=== PATIENT | male | born 1960 | race Caucasian/White ===

== ENCOUNTER 2017-07-13 05:36 | Inpatient (IN) | payer BC ==
[2017-07-13] MEDS: CEFAZOLIN 2 GM/50 ML (PMX) 50 ML IVPB (06:41)
[2017-07-13] MEDS ORDERED: MIDAZOLAM 1 MG/ML 2 ML INJ (06:48)
[2017-07-13] MEDS ORDERED: PROPOFOL 20 ML (06:48)
[2017-07-13] MEDS ORDERED: LIDOCAINE 1% (MDV) 20 ML INJ (06:48)
[2017-07-13] MEDS ORDERED: SUCCINYLCHOLINE CHLORIDE 100 MG/5 ML SYG IV (06:48)
[2017-07-13] MEDS ORDERED: ROCURONIUM 50 MG INJ (06:51)
[2017-07-13] MEDS ORDERED: THROMBIN 5000 UNIT VIAL (06:59)
[2017-07-13] MEDS ORDERED: GELATIN SIZE 100 SPONGE (06:59)
[2017-07-13] MEDS ORDERED: DEXAMETHASONE 4 MG/ML 1 ML INJ (07:03)
[2017-07-13] MEDS ORDERED: ONDANSETRON 4 MG INJ (07:03)
[2017-07-13] MEDS ORDERED: FAMOTIDINE 20 MG INJ (07:04)
[2017-07-13] MEDS ORDERED: PHENYLephrine (100 MCG/ML) 5ML SYG ×2 (07:05→07:38)
[2017-07-13] MEDS ORDERED: ONDANSETRON 4 MG INJ IV ×2 (07:30→09:30)
[2017-07-13] MEDS ORDERED: HYDROmorphONE (0.2 MG/ML) 10ML SYG IV ×2 (07:30)
[2017-07-13] MEDS ORDERED: LABETALOL HCL 20MG INJ IV (07:30)
[2017-07-13] MEDS ORDERED: hydrALAzine 20 MG INJ IV (07:30)
[2017-07-13] MEDS ORDERED: MEPERIDINE 25 MG INJ IV (07:30)
[2017-07-13] MEDS ORDERED: METOCLOPRAMIDE 10 MG INJ IV (07:30)
[2017-07-13] MEDS ORDERED: DIPHENHYDRAMINE 50 MG INJ IV (07:30)
[2017-07-13] MEDS: POLYMYXIN/BACITRACIN 1L IRRIG (08:02)
[2017-07-13] MEDS: BUPIVACAINE 0.5% (SDV) 30 ML INJ (08:02)
[2017-07-13] MEDS ORDERED: DIAZEPAM 5 MG/ML SYG IM (09:30)
[2017-07-13] MEDS ORDERED: NACL 0.9% 3 ML SYG IV (09:30)
[2017-07-13] MEDS ORDERED: AL HYDROX/MG HYDROX/SIMETH 30 ML CUP PO (09:30)
[2017-07-13] MEDS ORDERED: TRIMETHOBENZAMIDE 100 MG/ML VIAL IM (09:30)
[2017-07-13] MEDS ORDERED: CEPASTAT LOZENGE MT (09:30)
[2017-07-13] MEDS ORDERED: DIAZEPAM 5 MG TAB PO (09:30)
[2017-07-13] MEDS ORDERED: ACETAMINOPHEN 325 MG TAB PO (09:30)
[2017-07-13] MEDS ORDERED: NALOXONE (0.4 MG/ML) INJ IV (09:30)
[2017-07-13] MEDS ORDERED: DIPHENHYDRAMINE 50 MG CAP PO (09:30)
[2017-07-13] MEDS ORDERED: HYDROmorphONE 0.2 MG/ML PCA (09:30)
[2017-07-13] MEDS ORDERED: HYDROCODONE/APAP (5/325) TAB PO (09:30)
[2017-07-13] MEDS ORDERED: ZOLPIDEM 5 MG TAB PO (09:30)
[2017-07-13] MEDS ORDERED: PROCHLORPERAZINE 10 MG TAB PO (09:30)
[2017-07-13] MEDS: HYDROmorphONE 0.2 MG/ML PCA IV (09:44)
[2017-07-13] MEDS: DEXTROSE 5%-0.45% NACL 1,000 ML IV ×2 (09:46→19:05)
[2017-07-13] MEDS: CEFAZOLIN 1 GM/50 ML (PMX) 50 ML IVPB ×2 (11:50→17:35)
[2017-07-13] MEDS: BETHANECHOL 25 MG TAB PO (14:28)
[2017-07-13] MEDS: RANITIDINE 150 MG TAB PO (20:23)
[2017-07-14] MEDS: CEFAZOLIN 1 GM/50 ML (PMX) 50 ML IVPB ×2 (00:12→05:32)
[2017-07-14] MEDS: HYDROmorphONE 0.2 MG/ML PCA IV (04:53)
[2017-07-14] MEDS: DEXTROSE 5%-0.45% NACL 1,000 ML IV (05:28)
[2017-07-14 05:30] LABS: HEMATOCRIT 35.4 % (42.0-52.0); HEMOGLOBIN 12.2 g/dl (14.0-18.0)
[2017-07-14 06:12] LABS: ANION GAP 12 (8-16); BLOOD UREA NITROGEN 10 mg/dl (7-20); CALCIUM 8.9 mg/dl (8.4-10.2); CARBON DIOXIDE 26 mmol/L (21-31); CHLORIDE 103 mmol/L (97-110); GLUCOSE 135 mg/dl (70-220); POTASSIUM 4.1 mmol/L (3.5-5.1); SODIUM 137 mmol/L (135-144)
[2017-07-14] MEDS ORDERED: BETHANECHOL 25 MG TAB PO (08:00)
[2017-07-14] MEDS: LISINOPRIL 20 MG TAB PO (08:38)
[2017-07-14] MEDS: DOCUSATE SODIUM 100 MG CAP PO (08:38)
[2017-07-14] MEDS: RANITIDINE 150 MG TAB PO (08:38)
[2017-07-14] MEDS: ASCORBIC ACID 500 MG TAB PO (08:38)
[2017-07-14] MEDS: FERROUS SULFATE (EC) 325 MG TAB PO ×2 (08:38→14:22)
[2017-07-14] MEDS: HYDROCODONE/APAP (5/325) TAB PO ×2 (08:47→14:23)
[2017-07-14 14:37] LABS: ADD UMIC NO; UR ASCORBIC ACID NEGATIVE (NEGATIVE); UR BILIRUBIN (Dip) NEGATIVE (NEGATIVE); UR BLOOD (Dip) NEGATIVE (NEGATIVE); UR CLARITY CLEAR (CLEAR); UR COLOR STRAW (YELLOW); UR GLUCOSE (Dip) NEGATIVE (NEGATIVE); UR KETONES (Dip) NEGATIVE (NEGATIVE); UR LEUKOCYTE ESTERASE (Dip) NEGATIVE Leu/ul (NEGATIVE); UR NITRITE (Dip) NEGATIVE (NEGATIVE); UR SPECIFIC GRAVITY (Dip) 1.005 (1.003-1.030); UR TOTAL PROTEIN (Dip) NEGATIVE (NEGATIVE); UR UROBILINOGEN (Dip) NEGATIVE (NEGATIVE)
== END 2017-07-14 14:30 | disposition home or self-care (01) | DRG 520 ==
LOC: REC 05:36 → MS1 11:00
PROC: 0SB40ZZ Excision of Lumbosacral Disc, Open Approach (ICD-10-PCS; principal; 2017-07-13 07:00)
DX: M51.17 Intervertebral disc disorders with radiculopathy, lumbosacral region (principal); I10 Essential (primary) hypertension
CPT/HCPCS: 72020; 80048; 81003; 85014; 85018; 86850; 86900; 86901; 86920; 88304; 97116; 97163; 97530